=== PATIENT | male | born 1995 | race Two or more races ===

== ENCOUNTER 2022-01-12 12:04 | Outpatient (CLI) | payer OTHER | END 2022-01-12 12:14 | disposition home or self-care (01) | LOC: RAD 12:04 | PROVIDERS: ATTEND Orthopaedic Surgery | DX: S92.354A Nondisplaced fracture of fifth metatarsal bone, right foot, initial encounter for closed fracture (principal) ==

== ENCOUNTER 2022-03-16 12:53 | Outpatient (CLI) | payer OTHER | END 2022-03-16 13:04 | disposition home or self-care (01) | LOC: RAD 12:53 | PROVIDERS: ATTEND Orthopaedic Surgery | DX: S92.354A Nondisplaced fracture of fifth metatarsal bone, right foot, initial encounter for closed fracture (principal) ==